=== PATIENT | male | born 1980 | race African-American/Black ===

== ENCOUNTER → 2021-09-07 | Outpatient (REF) ==
--- NOTE | 2021-09-07 15:01 | REP ---
INDICATION: PAIN. COMPARISON: None. TECHNIQUE: AP, lateral, swimmer's, and open-mouth views of the cervical spine FINDINGS: Straightening of normal lordosis is nonspecific. Moderate multilevel degenerative changes include endplate sclerosis and disc space narrowing primarily C5-6 and to a lesser extent C4-5 and C6-7. No acute fracture/compression injury or subluxation. Open mouth view demonstrates normal C1-C2 articulation and odontoid process. IMPRESSION: Moderate degenerative disc space narrowing centered at C5-6. <Electronically signed by Awais Moe > 09/07/21 0922
== END ==
LOC: M PLAIMG 12:27
PROVIDERS: ATTEND Internal Medicine
DX: M50.322 Other cervical disc degeneration at C5-C6 level (principal)

== ENCOUNTER → 2021-09-21 | Outpatient (REF) ==
--- NOTE | 2021-09-21 08:37 | REP ---
INDICATION: PAIN COMPARISON: None. TECHNIQUE: AP, lateral, sunrise views of the right and left knee FINDINGS: Right and left knee are grossly normal/age-appropriate. No evidence for acute or healed injury. No significant degenerative changes. No effusion. IMPRESSION: Relatively symmetric age-appropriate bilateral knee radiograph series. <Electronically signed by Awais Moe > 09/21/21 0266
== END ==
LOC: M PLAIMG 08:08
PROVIDERS: ATTEND Internal Medicine
DX: M25.561 Pain in right knee (principal); M25.562 Pain in left knee